=== PATIENT | female | born 1945 | race Caucasian/White ===

== ENCOUNTER 2018-10-26 07:09 | Day surgery (SDC) | payer MEDICARE ==
[2018-10-23 10:09] VITALS: BMI 21.7
[~2018-10-26 07:09] MED LIST: LACTATED RINGERS 1,000 ML IV SCH; LIDOCAINE 1% 20 ML VIAL (10MG/ML) FOR IV START INTRADERMA PRN
[2018-10-26 07:33] VITALS: RESP 16; TEMP 98
[2018-10-26 07:46] LABS: Glucose,Whole Blood 191 mg/dL (75-99)
[2018-10-26] MEDS ORDERED: LIDOCAINE 1% INJ 10MG/ML (20 ML MDV) ONE (08:20)
[2018-10-26] MEDS ORDERED: PROPOFOL 10 MG/ML 20 ML VIAL IV ONE (08:20)
--- NOTE | 2018-10-26 09:06 | P.PCN ---
Date of Procedure: 10/26/18 Description of Procedure: BRIEF HISTORY: 73-year-old female with medical history significant for diabetes mellitus, hypertension and dyslipidemia who presents for her first screening colonoscopy. The patient reports no signs or symptoms of GI bleeding denying any medications or melena. No change in bowel habits, constipation or diarrhea. The patient had Cologaurd testing in the outpatient setting with her primary care physician that was positive. No family history of colon cancer. PROCEDURE PERFORMED: Colonoscopy with polypectomy. Room in time 8:20AM for case scheduled at 8 AM. K start time 8:29AM. PREOPERATIVE DIAGNOSIS: Positive Cologaurd, screening colonoscopy, no prior colonoscopy reported. ESTIMATED BLOOD LOSS: Minimal. IV sedation per Anesthesia. PROCEDURE: After informed consent was obtained, the patient, was brought into the endoscopy unit. IV sedation was administered by Anesthesia under continuous monitoring. Digital rectal examination was normal. Initially the Olympus CF- 190 flexible video colonoscope was then inserted in the rectum, gradually advanced into the cecum without any difficulty. Careful examination was performed as the scope was gradually being withdrawn. Ileocecal valve and the appendiceal orifice were visualized and appeared normal. Prep was excellent. Mucosa of the cecum, ascending colon, transverse colon, descending colon, sigmoid colon, and rectum appeared normal. Sessile 4 mm polyp removed in ascending colon by cold forcep polypectomy. Sessile 3 mm polyp removed from the splenic flexure with cold forcep polypectomy. 3 diminutive 2-3 mm polyps removed from the descending colon with cold forcep polypectomy. Retroflexion was performed in the rectum and no lesions were seen. The patient tolerated the procedure well. IMPRESSION: Normal-appearing colon from rectum to cecum. Cold forcep polypectomy of polyps in the ascending colon, splenic flexure and descending colon. RECOMMENDATIONS: Findings of this examination were discussed with the patient. Okay to resume diet. Await pathology from polyp resections. Anticipate repeat colonoscopy in 5 years pending pathology from polypectomies.
[2018-10-26 09:24] VITALS: BP 128/73; PULSE 78
== END 2018-10-26 09:39 | disposition home or self-care (01) ==
LOC: ORWHC2ENDO 07:09
PROVIDERS: ATTEND Internal Medicine
DX: D12.3 Benign neoplasm of transverse colon (principal); D12.4 Benign neoplasm of descending colon; K63.5 Polyp of colon; E11.9 Type 2 diabetes mellitus without complications; I10 Essential (primary) hypertension; E78.5 Hyperlipidemia, unspecified; Z79.84 Long term (current) use of oral hypoglycemic drugs; Z79.82 Long term (current) use of aspirin; Z79.899 Other long term (current) drug therapy; F17.200 Nicotine dependence, unspecified, uncomplicated
CPT/HCPCS: 88305; 45380; J2001; J2704

== ENCOUNTER 2020-03-07 15:39 | Emergency (ER) | payer OTHER, MEDICARE ==
[2020-03-07] MEDS ORDERED: IPRATROPIUM-ALBUTEROL 3 ML NEB INHALATION STA (15:43)
[2020-03-07 15:52] LABS: Glucose,Whole Blood 428 mg/dL (75-99)
--- NOTE | 2020-03-07 16:02 | XR ---
EXAMINATION TYPE: XR chest 1V portable DATE OF EXAM: 03/07/2020 COMPARISON: NONE HISTORY: Generalized pain TECHNIQUE: Single frontal view of the chest is obtained. FINDINGS: Atherosclerotic change aorta. Linear changes at the lung bases most typical of atelectasis . Diffuse osteopenia and arthropathy of the shoulder. IMPRESSION: No acute process.
--- NOTE | 2020-03-07 16:03 | XR ---
EXAMINATION TYPE: XR pelvis AP view DATE OF EXAM: 03/07/2020 COMPARISON: NONE HISTORY: Pain The osseous structures are intact and the joint spaces are preserved. No acute fracture is seen. Vi sualized bowel gas pattern is nonspecific. Arthropathy of the hips. Vascular calcifications noted. S light deformity of the right sacral josh. Assessment of the pubic rami limited due to positioning and artifact. IMPRESSION: 1. Exam. Cannot exclude a fracture of the right sacrum or pubic rami. Apparently, a CT of the abdomen pelvis is already ordered.
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
[2020-03-07 16:12] VITALS: RESP 24
[2020-03-07 16:12] LABS: ALT 81 U/L (4-34); AST 198 U/L (14-36); African American GFR (CKD) >90 (>60 ml/min/1.73 sqM); Albumin 4.1 g/dL (3.5-5.0); Alkaline Phosphatase 116 U/L (38-126); Anion Gap 17 mmol/L; Basophils # (A) 0.1 k/uL (0-0.2); Basophils % (A) 1 %; Blood Urea Nitrogen 12 mg/dL (7-17); Carbon Dioxide 18 mmol/L (22-30); Chloride 94 mmol/L (98-107); Creatine Kinase 169 U/L (30-135); Eosinophils # (A) 0.1 k/uL (0-0.7); Eosinophils % (A) 1 %; Glucose 448 mg/dL (74-99); HCT 43.8 % (34.0-46.0); HGB 14.4 gm/dL (11.4-16.0); Lymphocytes # (A) 4.2 k/uL (1.0-4.8); Lymphocytes % (A) 37 %; MCH 33.7 pg (25.0-35.0); MCHC 32.9 g/dL (31.0-37.0); MCV 102.4 fL (80.0-100.0); Macrocytosis Slight; Mean Platelet Volume 8.6; Monocytes # (A) 0.5 k/uL (0-1.0); Monocytes % (A) 5 %; Neutrophils # (A) 6.2 k/uL (1.3-7.7); Neutrophils % (A) 54 %; Non-African American GFR(CKD) 83 (>60 ml/min/1.73 sqM); Platelet Count 229 k/uL (150-450); Potassium 4.6 mmol/L (3.5-5.1); Prothrombin Time 10.1 sec (9.0-12.0); RBC 4.28 m/uL (3.80-5.40); RDW 14.3 % (11.5-15.5); Sodium 129 mmol/L (137-145); Total Bilirubin 0.5 mg/dL (0.2-1.3); Total Protein 7.3 g/dL (6.3-8.2); WBC 11.4 k/uL (3.8-10.6)
[2020-03-07 16:19] LABS: Alcohol 218 mg/dL
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
[2020-03-07] MEDS ORDERED: SODIUM CHLORIDE 0.9% 1,000 ML IV STA ×2 (16:59)
[2020-03-07] MEDS ORDERED: SODIUM CHLORIDE 0.9% 500 ML 500 ML IV STA (16:59)
[2020-03-07 17:02] LABS: Appearance,Urine Cloudy (Clear); Bacteria,Urine Few /hpf; Bilirubin,Urine Negative (Negative); Blood,Urine Large (Negative); Color,Urine Dark Red; Glucose,Urine (UA) 4+ (Negative); Ketones,Urine Negative (Negative); Leukocyte Esterase,Urine Small (Negative); Nitrite,Urine Negative (Negative); Protein,Urine 2+ (Negative); RBC,Urine >182 /hpf (0-5); Specific Gravity,Urine 1.016 (1.001-1.035); Urobilinogen,Urine <2.0 mg/dL (<2.0); WBC,Urine 30 /hpf (0-5)
[2020-03-07 17:19] LABS: Amphetamine Screen,Urine Not Detected (NotDetected); Barbiturate Screen,Urine Not Detected (NotDetected); Benzodiazepines Screen,Urine Not Detected (NotDetected); Cocaine Screen,Urine Not Detected (NotDetected); Methadone Screen, Urine Not Detected (NotDetected); Opiate Screen,Urine Not Detected (NotDetected); Oxycodone Screen, Urine Not Detected (NotDetected); Phencyclidine Screen,Urine Not Detected (NotDetected); Tricyclic Antidepressant,Urine Not Detected (NotDetected); Urn Cannabinoid Scrn Not Detected (NotDetected)
[2020-03-07] MEDS ORDERED: MORPHINE SULFATE 2 MG/ML SYRINGE IVP STA (17:32)
[2020-03-07 18:19] VITALS: BP 148/65; PULSE 110; TEMP 97.4
== END 2020-03-07 17:55 | disposition other institution (70) ==
LOC: EC 15:39
DX: S22.41XA Multiple fractures of ribs, right side, initial encounter for closed fracture (principal); S32.592A Other specified fracture of left pubis, initial encounter for closed fracture; S32.591A Other specified fracture of right pubis, initial encounter for closed fracture; S32.10XA Unspecified fracture of sacrum, initial encounter for closed fracture; S36.039A Unspecified laceration of spleen, initial encounter; F10.129 Alcohol abuse with intoxication, unspecified; E78.5 Hyperlipidemia, unspecified; E11.9 Type 2 diabetes mellitus without complications; I10 Essential (primary) hypertension; F17.200 Nicotine dependence, unspecified, uncomplicated; Z79.84 Long term (current) use of oral hypoglycemic drugs; Z79.82 Long term (current) use of aspirin; Z79.899 Other long term (current) drug therapy; Z88.0 Allergy status to penicillin; Z98.42 Cataract extraction status, left eye; Y90.7 Blood alcohol level of 200-239 mg/100 ml; V43.52XA Car driver injured in collision with other type car in traffic accident, initial encounter; Y93.89 Activity, other specified; Y92.410 Unspecified street and highway as the place of occurrence of the external cause
CPT/HCPCS: 36415; 94640; 93005; 86900; 86901; 80053; 82550; 84484; 85025; 85610; 85730; 86850; 81001; 80306; 80320; 72170; 71045; 72125; 70450; 71260; 74177; 99291; 96374; 96361; J2270; Q9967

== ENCOUNTER → 2020-09-30 | Outpatient (CLI) | payer MEDICARE, OTHER ==
--- NOTE | 2020-10-01 09:21 | P.ARTDOP ---
Arterial Doppler LOWER EXTREMITY ARTERIAL DOPPLER: DATE OF SERVICE: 09/30/2020 Reason for study: Gangrene right side toes. Doppler waveforms: Atypical throughout on the left. Atypical to the dorsalis pedis on the right but toe waveforms are flat line. Pulse volume recording: []. Pressure gradients: Severe gradient above right low thigh. Moderate on the left.. Ankle-brachial indices: 0.34 on the right and 0.51 on the left. Toe brachial indices: [] on the right, 0.34 on the left Impression: Severe right iliofemoral occlusive disease. At least moderate left iliofemoral occlusive disease. Vascular specialty consult recommended..
== END | disposition home or self-care (01) ==
LOC: RADUSWWP 09:22
PROVIDERS: ATTEND Family Medicine
DX: I74.5 Embolism and thrombosis of iliac artery (principal)
CPT/HCPCS: 93923